=== PATIENT | male | born 2000 | race Two or more races ===

== ENCOUNTER 2022-12-24 14:01 | Inpatient (IN) | payer SELFPAY ==
[~2022-12-24] VITALS: Ht 188 cm; Wt 70.3 kg
[2022-12-24 14:05] VITALS: O2SAT 98
[2022-12-24] MEDS ORDERED: LEVETIRACETAM 1000MG PREMIX 100 ML IV ONE (14:45)
[2022-12-24 15:11] LABS: CHLORIDE 106 mEq/L (98-107); INDEX HEMOLYSI 1 (1-3); INDEX ICTERIC 1 (1-4); INDEX LIPEMIC 1 (1-3); POTASSIUM 4.6 mEq/L (3.5-5.1); SODIUM 135 mEq/L (136-145)
[2022-12-24 15:23] LABS: ACETAMINOPHEN <2 ug/mL ug/mL (10-30); ALANINE AMINOTRANSFERASE 25 IU/L (13-61); ALBUMIN 4.4 g/dL (3.4-5.0); ASPARTATE AMINOTRANSFERASE 18 IU/L (15-37); BILIRUBIN TOTAL 0.5 mg/dL (0.1-1.0); CARBON DIOXIDE 24 mEq/L (21-32); CREATINE KINASE 189 IU/L (39-308); CREATININE 1.4 mg/dL (0.6-1.3); ETHANOL BLOOD < 10 mg/dL (-10); GLUCOSE 103 mg/dL (70-105); NT PRO B-TYPE NATRIURETIC PEP 17 pg/mL (5-125); PROTEIN TOTAL 7.6 g/dL (6.0-8.3); UREA NITROGEN BLOOD 14 mg/dL (7-21)
[2022-12-24 15:26] LABS: BASOPHILS % 0.1 % (0.0-2.0); EOSINOPHILS % 0.4 % (0.0-5.0); HEMATOCRIT. 44.5 % (42.0-52.0); LYMPHOCYTES % 9.1 % (20.0-50.0); MEAN CORPUSCULAR HEMOGLOBIN 29.2 pg (28.0-32.0); MEAN CORPUSCULAR HGB CONC 33.7 g/dL (31.0-37.0); MEAN CORPUSCULAR VOLUME 86.7 fL (80.0-94.0); MEAN PLATELET VOLUME 8.9 fl (7.4-10.4); MONOCYTES % 4.2 % (2.0-8.0); NEUTROPHILS % 86.2 % (40.0-76.0); PLATELET 174 x1000/uL (130-400); RED BLOOD CELL COUNT 5.13 mill/uL (4.7-6.1); RED CELL DISTRIBUTION WIDTH 13.1 % (11.6-14.6); WHITE BLOOD COUNT 11.7 x1000/uL (4.5-11.0)
[2022-12-24 16:09] LABS: TROPONIN I HIGH SENSITIVITY < 4 ng/L (<78)
[2022-12-24] MEDS ORDERED: MAGNESIUM/ALUMINUM HYDROXIDE/SIMETHICONE 30ML UDC PO PRN (17:30)
[2022-12-24] MEDS ORDERED: ACETAMINOPHEN 325MG TABLET PO PRN ×2 (17:30)
[2022-12-24] MEDS ORDERED: IPRATROPIUM/ALBUTEROL 0.5-3(2.5)MG/3ML NEB HHN PRN (17:30)
[2022-12-24] MEDS ORDERED: ONDANSETRON HCL 4MG/2ML INJ IV PRN (17:30)
[2022-12-24] MEDS ORDERED: DOCUSATE SODIUM 100MG CAPSULE PO PRN (17:30)
[2022-12-24] MEDS ORDERED: GUAIFENESIN 200MG/10ML SUGAR FREE UDC PO PRN (17:30)
[2022-12-24] MEDS ORDERED: SODIUM CHLORIDE 0.9% 1,000 ML IV ONE (18:00)
[2022-12-24 18:08] LABS: CLARITY URINE CLEAR (CLEAR); COLOR URINE YELLOW (YELLOW); GLUCOSE URINE NEGATIVE (NEGATIVE); KETONES URINE NEGATIVE (NEGATIVE); LEUKOCYTE ESTERASE URINE NEGATIVE (NEGATIVE); NITRITE URINE NEGATIVE (NEGATIVE); OCCULT BLOOD URINE NEGATIVE (NEGATIVE); PROTEIN URINE NEGATIVE (NEGATIVE); SPECIFIC GRAVITY URINE 1.004 (1.005-1.030); UROBILINOGEN URINE 0.2 E.U./dL (0.2-1.0)
[2022-12-24 18:20] LABS: *AMPHETAMINES SCREEN URINE NEGATIVE (NEGATIVE); *BARBITURATES SCREEN URINE NEGATIVE (NEGATIVE); *BENZODIAZEPINES SCREEN URINE NEGATIVE (NEGATIVE); *COCAINE SCREEN URINE NEGATIVE (NEGATIVE); CANNABINOID URINE SCREEN PRESUMTIVE POSITIVE (NEGATIVE); ECSTASY MDMA SCREEN URINE NEGATIVE (NEGATIVE); METHADONE URINE SCREEN NEGATIVE (NEGATIVE); OPIATES URINE SCREEN NEGATIVE (NEGATIVE); PHENCYCLIDINE URINE SCREEN NEGATIVE (NEGATIVE)
[2022-12-24] MEDS ORDERED: ENOXAPARIN 40MG/0.4ML SYR SUBCUT SCH (20:00)
[2022-12-24 21:00] VITALS: BP 113/68; PULSE 61; RESP 18; TEMP 98.2
[2022-12-24 21:30] VITALS: BP 113/68; PULSE 61; RESP 18; TEMP 98.2
[2022-12-24 23:26] LABS: INDEX HEMOLYSI 1 (1-3)
[2022-12-24 23:34] LABS: CREATINE KINASE 442 IU/L (39-308); CREATINE KINASE MB FRACTION 3.9 ng/mL (0.5-3.6); TROPONIN I HIGH SENSITIVITY 7 ng/L (<78)
[2022-12-25] VITALS: BP 115/60; PULSE 57; RESP 18; TEMP 98
[2022-12-25 04:00] VITALS: BP 122/70; PULSE 64; RESP 18; TEMP 98.2
[2022-12-25] MEDS ORDERED: FAMOTIDINE 20MG TABLET PO SCH (07:00)
[2022-12-25 07:36] LABS: BASOPHILS % 0.2 % (0.0-2.0); EOSINOPHILS % 0.4 % (0.0-5.0); HEMATOCRIT. 41.8 % (42.0-52.0); HEMOGLOBIN. 14.4 g/dL (14.0-18.0); MEAN CORPUSCULAR HEMOGLOBIN 29.9 pg (28.0-32.0); MEAN CORPUSCULAR HGB CONC 34.5 g/dL (31.0-37.0); MEAN CORPUSCULAR VOLUME 86.6 fL (80.0-94.0); MEAN PLATELET VOLUME 9.5 fl (7.4-10.4); MONOCYTES % 8.9 % (2.0-8.0); NEUTROPHILS % 70.5 % (40.0-76.0); PLATELET 177 x1000/uL (130-400); RED BLOOD CELL COUNT 4.83 mill/uL (4.7-6.1); RED CELL DISTRIBUTION WIDTH 13.2 % (11.6-14.6); WHITE BLOOD COUNT 9.3 x1000/uL (4.5-11.0)
[2022-12-25 07:39] LABS: CHLORIDE 108 mEq/L (98-107); INDEX HEMOLYSI 1 (1-3); INDEX ICTERIC 1 (1-4); INDEX LIPEMIC 1 (1-3); POTASSIUM 3.8 mEq/L (3.5-5.1); SODIUM 136 mEq/L (136-145)
[2022-12-25 07:56] LABS: ALANINE AMINOTRANSFERASE 21 IU/L (13-61); ASPARTATE AMINOTRANSFERASE 19 IU/L (15-37); BILIRUBIN TOTAL 0.9 mg/dL (0.1-1.0); CALCIUM 8.9 mg/dL (8.5-10.1); CARBON DIOXIDE 23 mEq/L (21-32); CHOLESTEROL 176 mg/dL (<200); CREATINE KINASE 347 IU/L (39-308); CREATINE KINASE MB FRACTION 2.7 ng/mL (0.5-3.6); CREATININE 1.1 mg/dL (0.6-1.3); GLUCOSE 82 mg/dL (70-105); HDL CHOLESTEROL 59 mg/dL (40-59); LDL CHOLESTEROL 113 mg/dL (5-100); PROTEIN TOTAL 7.1 g/dL (6.0-8.3); T4 FREE 1.07 ng/dL (0.76-1.46); TRIGLYCERIDE 73 mg/dL (0-150); TROPONIN I HIGH SENSITIVITY 5 ng/L (<78); UREA NITROGEN BLOOD 12 mg/dL (7-21)
[2022-12-25 08:00] VITALS: BP 121/72; PULSE 75; RESP 20; TEMP 99.3
[2022-12-25] MEDS ORDERED: SODIUM CHLORIDE 0.9% 1,000 ML IV ONE (09:15)
[2022-12-25 12:00] VITALS: BP 121/74; PULSE 70; TEMP 97
[2022-12-25] MEDS ORDERED: LEVETIRACETAM 500MG TABLET PO SCH (21:00)
== END 2022-12-25 15:08 | disposition home or self-care (01) | DRG 53 ==
LOC: ER 14:01 → EDBEDREQ 15:33 → EDBEDREQTM 15:33 → 8WST 20:44
PROVIDERS: ADMIT Internal Medicine; ATTEND Internal Medicine
DX: G40.89 Other seizures (principal); N17.9 Acute kidney failure, unspecified; S01.512A Laceration without foreign body of oral cavity, initial encounter; H92.02 Otalgia, left ear; X58.XXXA Exposure to other specified factors, initial encounter; Y93.89 Activity, other specified; Y92.89 Other specified places as the place of occurrence of the external cause; Y99.8 Other external cause status
CPT/HCPCS: 36415; 71045; 80053; 80061; 80305; 80307; 80320; 80329; 81003; 82550; 82553; 83880; 84439; 84443; 84484; 85025; 93005; 99285; J1650; J1953; G0480